=== PATIENT | female | born 1965 | race Caucasian/White ===

== ENCOUNTER → 2021-07-13 | Outpatient (CLI) | payer OTHER | LOC: M SOG 10:18 | PROVIDERS: ATTEND Orthopaedic Surgery Adult Reconstructive Orthopaedic Surgery | DX: M25.561 Pain in right knee (principal) ==

== ENCOUNTER → 2021-08-02 | Outpatient (CLI) | payer OTHER ==
[2021-08-02 16:09] LABS: BASO # 0.1 10^3/uL (0.0-0.2); BASO % 1.1 % (0.0-1.0); EOS # 0.1 10^3/uL (0.0-0.5); EOS % 1.5 % (0.0-3.0); HEMATOCRIT 40.1 % (36.0-47.0); HEMOGLOBIN 13.4 g/dl (12.0-15.5); LYMPH # 1.6 10^3/uL (1.5-5.0); LYMPH % 29.5 % (24.0-44.0); MEAN CORPUSCULAR HEMOGLOBIN 31.5 pg (27.0-33.0); MEAN CORPUSCULAR HGB CONC 33.4 g/dl (32.0-36.5); MEAN CORPUSCULAR VOLUME 94.4 fl (80.0-96.0); MONO # 0.5 10^3/uL (0.0-0.8); MONO % 8.9 % (2.0-8.0); NEUTROPHILS # 3.1 10^3/uL (1.5-8.5); PLATELET COUNT, AUTOMATED 261 10^3/uL (150-450); RED BLOOD COUNT 4.25 10^6/uL (4.00-5.40); WHITE BLOOD COUNT 5.3 10^3/uL (4.0-10.0)
[2021-08-02 18:22] LABS: ERYTHROCYTE SEDIMENTATION RATE 3 mm/hr (0-30)
== END ==
LOC: M RAD 14:26
PROVIDERS: ATTEND Orthopaedic Surgery Adult Reconstructive Orthopaedic Surgery
DX: M23.91 Unspecified internal derangement of right knee (principal); M89.8X8 Other specified disorders of bone, other site

== ENCOUNTER 2021-08-28 09:54 | Day surgery (SDC) | payer OTHER ==
[~2021-08-28] VITALS: Ht 167.6 cm; Wt 65.2 kg
[~2021-08-28 09:54] MED LIST: ACETAMINOPHEN 500 MG TAB PO ONE; GABAPENTIN 300 MG CAP PO ONE; LIDOCAINE 2% 100MG/5ML SDV (FOR ANES.) As Ordered ONE; LR 1,000 ML IV ONE; MIDAZOLAM INJ 2MG/2ML VIAL (J2250 PER 1MG) As Ordered ONE; ONDANSETRON 4MG/2ML VIAL IV ONE; OXYC1TAB23 PO; fentaNYL 100 MCG/2 ML INJECTION As Ordered ONE; propofoL 200 MG/20 ML VIAL As Ordered ONE
[2021-08-28] MEDS ORDERED: EPINEPHrine INJ 1 MG/ML 1ML AMP As Ordered ONE (13:05)
[2021-08-28] MEDS ORDERED: BUPIVACAINE/EPIN 0.5% 30 ML VIAL As Ordered ONE (13:06)
[2021-08-28] MEDS ORDERED: dexameTHASONE 4 MG/ML 1ML VIAL (J1100 PER 1MG) As Ordered ONE (13:40)
[2021-08-28] MEDS ORDERED: METOCLOPRAMIDE INJ 10MG/2ML VIAL (J2765 PER 1) As Ordered ONE (13:42)
[2021-08-28] MEDS ORDERED: ePHEDrine SULFATE 25 MG/5 ML(5MG/ML) SYRINGE As Ordered ONE (13:45)
[2021-08-28] MEDS ORDERED: fentaNYL 100 MCG/2 ML INJECTION As Ordered ONE (14:37)
[2021-08-28] MEDS: fentaNYL 100 MCG/2 ML INJECTION IV PRN ×4 (14:38→14:56)
[2021-08-28] MEDS ORDERED: LR 1,000 ML IV SCH (15:05)
[2021-08-28] MEDS ORDERED: ONDANSETRON 4MG/2ML VIAL IV PRN (15:05)
[2021-08-28] MEDS: PERCOCET 5MG/325MG TAB PO PRN ×2 (15:08→15:46)
[2021-08-28 15:18] VITALS: BP 124/70
== END 2021-08-28 16:04 | disposition home or self-care (01) ==
LOC: M SDC 09:54
PROVIDERS: ATTEND Orthopaedic Surgery Adult Reconstructive Orthopaedic Surgery
DX: M23.91 Unspecified internal derangement of right knee (principal); F41.9 Anxiety disorder, unspecified; Z91.014 Allergy to mammalian meats; Z79.899 Other long term (current) drug therapy; Z88.1 Allergy status to other antibiotic agents; Z88.0 Allergy status to penicillin; Z88.8 Allergy status to other drugs, medicaments and biological substances
CPT/HCPCS: 29879; J0171; J2250; J2765; J3010

== ENCOUNTER → 2021-12-04 | Outpatient (CLI) | payer OTHER ==
[~2021-12-04] MED LIST changes: -ACETAMINOPHEN 500 MG TAB PO ONE; -GABAPENTIN 300 MG CAP PO ONE; -LIDOCAINE 2% 100MG/5ML SDV (FOR ANES.) As Ordered ONE; -LR 1,000 ML IV ONE; -MIDAZOLAM INJ 2MG/2ML VIAL (J2250 PER 1MG) As Ordered ONE; -ONDANSETRON 4MG/2ML VIAL IV ONE; -fentaNYL 100 MCG/2 ML INJECTION As Ordered ONE; -propofoL 200 MG/20 ML VIAL As Ordered ONE
== END ==
LOC: M SOG 14:50
PROVIDERS: ATTEND Orthopaedic Surgery Adult Reconstructive Orthopaedic Surgery
DX: M25.561 Pain in right knee (principal)

== ENCOUNTER → 2022-01-04 | Outpatient (CLI) | payer OTHER | LOC: M RAD 16:46 | PROVIDERS: ATTEND Orthopaedic Surgery Adult Reconstructive Orthopaedic Surgery | DX: S89.91XD Unspecified injury of right lower leg, subsequent encounter (principal) ==

== ENCOUNTER 2022-01-08 10:00 | Outpatient (RCR) | payer OTHER ==
[2022-01-15] MEDS ORDERED: CLON-412 PO (08:55)
[2022-01-16] MEDS ORDERED: ACET1TAB55 PO (09:25)
[2022-01-16] MEDS ORDERED: SENN18TA PO (09:25)
[2022-01-16] MEDS ORDERED: FERR1TAB8 PO (09:25)
[2022-01-16] MEDS ORDERED: OXYC-517 PO ×2 (09:25→12:58)
[2022-01-16] MEDS ORDERED: ASPI81CH8 PO (09:25)
[2022-01-16] MEDS ORDERED: TRAM50TA2 PO (09:25)
[2022-01-16] MEDS ORDERED: COLA100C5 PO (09:25)
[2022-01-16] MEDS ORDERED: LIDO5TD TD (09:25)
[2022-01-16] MEDS ORDERED: ASCO50TA PO (09:25)
== END 2022-01-18 ==
LOC: M PT 10:00
PROVIDERS: ATTEND Orthopaedic Surgery Adult Reconstructive Orthopaedic Surgery
DX: S89.91XD Unspecified injury of right lower leg, subsequent encounter (principal)

== ENCOUNTER 2022-01-15 08:28 | Observation (INO) | payer OTHER ==
[~2022-01-15] VITALS: Ht 170.2 cm; Wt 66.8 kg
[2022-01-15] VITALS (7 sets, daily range): BP systolic 109–115; BP diastolic 61–65
[~2022-01-15 08:28] MED LIST changes: +ACETAMINOPHEN 500 MG TAB PO ONE; +NS 1,000 ML IV ONE; +PREGABALIN 25 MG CAP (LYRICA) PO ONE; +ROPIVA 125MG/EPINEPH 0.25MG/CLONID 40MCG IN NS 50ML SYRINGE PA ONE; +ceFAZolin SOD 2 GM in IV 1 EA IV ONE; +dexameTHASONE 4 MG/ML 1ML VIAL (J1100 PER 1MG) IV ONE
[2022-01-15] MEDS ORDERED: CLON-412 PO (08:55)
[2022-01-15] MEDS ORDERED: TRANEXAMIC ACID 100 MG/ML 10ML VIAL As Ordered ONE ×2 (10:26→10:27)
[2022-01-15] MEDS ORDERED: LR 1,000 ML IV SCH ×2 (10:50→13:25)
[2022-01-15] MEDS ORDERED: SUGAMMADEX SODIUM 500 MG/5 ML VIAL (BRIDION) As Ordered ONE (11:22)
[2022-01-15] MEDS ORDERED: LIDOCAINE 2% 100MG/5ML SDV (FOR ANES.) As Ordered ONE (11:22)
[2022-01-15] MEDS ORDERED: METOCLOPRAMIDE INJ 10MG/2ML VIAL (J2765 PER 1) As Ordered ONE (11:22)
[2022-01-15] MEDS ORDERED: fentaNYL 250 MCG/5 ML INJECTION As Ordered ONE (11:22)
[2022-01-15] MEDS ORDERED: dexameTHASONE 4 MG/ML 1ML VIAL (J1100 PER 1MG) As Ordered ONE (11:22)
[2022-01-15] MEDS ORDERED: MIDAZOLAM INJ 2MG/2ML VIAL (J2250 PER 1MG) As Ordered ONE (11:22)
[2022-01-15] MEDS ORDERED: ONDANSETRON 4MG 2ML VIAL As Ordered ONE (11:22)
[2022-01-15] MEDS ORDERED: propofoL 200 MG/20 ML VIAL As Ordered ONE (11:22)
[2022-01-15] MEDS ORDERED: PHENYLephrine 500MCG 5ML (100MCG/ML) SYRINGE As Ordered ONE (11:22)
[2022-01-15] MEDS ORDERED: fentaNYL 100 MCG/2 ML INJECTION As Ordered ONE (11:22)
[2022-01-15] MEDS ORDERED: ROCURONIUM BROMIDE 50 MG/5 ML VIAL As Ordered ONE (11:22)
[2022-01-15] MEDS ORDERED: DESFLURANE 240 ML INHALANT As Ordered ONE (13:08)
[2022-01-15] MEDS ORDERED: HYDROmorphone HCL 2MG/ML 1ML VIAL As Ordered ONE (13:22)
[2022-01-15] MEDS ORDERED: ONDANSETRON 4MG 2ML VIAL IV PRN ×2 (13:25→18:00)
[2022-01-15] MEDS ORDERED: fentaNYL 100 MCG/2 ML INJECTION IV PRN (13:25)
[2022-01-15] MEDS: oxyCODONE 5MG TAB PO PRN ×4 (13:49→22:39)
[2022-01-15] MEDS: MORPHINE 2 MG/ML 1ML VIAL IV PRN ×3 (14:06→14:48)
[2022-01-15 14:39] LABS: HEMATOCRIT 39.4 % (36.0-47.0); HEMOGLOBIN 13.2 g/dl (12.0-15.5); MEAN CORPUSCULAR HEMOGLOBIN 32.6 pg (27.0-33.0); MEAN CORPUSCULAR HGB CONC 33.5 g/dl (32.0-36.5); MEAN CORPUSCULAR VOLUME 97.3 fl (80.0-96.0); PLATELET COUNT, AUTOMATED 280 10^3/uL (150-450); RED BLOOD COUNT 4.05 10^6/uL (4.00-5.40); WHITE BLOOD COUNT 15.6 10^3/uL (4.0-10.0)
[2022-01-15] MEDS ORDERED: HOME MED LIST COMPLETE! XX SCH (15:15)
[2022-01-15 15:21] LABS: BLOOD UREA NITROGEN 8 MG/DL (7-18); CALCIUM LEVEL 8.9 MG/DL (8.5-10.1); CARBON DIOXIDE LEVEL 27 MEQ/L (21-32); CHLORIDE LEVEL 106 MEQ/L (98-107); CREATININE FOR GFR 0.68 MG/DL (0.55-1.30); GLOMERULAR FILTRATION RATE > 60.0 (>51); GLUCOSE, FASTING 125 MG/DL (70-100); POTASSIUM SERUM 3.8 MEQ/L (3.5-5.1); SODIUM LEVEL 138 MEQ/L (136-145)
[2022-01-15] MEDS ORDERED: SENNA 8.6 MG TAB (SENOKOT) PO PRN (18:00)
[2022-01-15] MEDS ORDERED: oxyCODONE 5MG TAB PO PRN (18:00)
[2022-01-15] MEDS: LR 1,000 ML IV SCH (18:05)
[2022-01-15] MEDS: ACETAMINOPHEN TAB 650MG DOSE (2X325MG) PO SCH (18:29)
[2022-01-15] MEDS: ceFAZolin SOD 2 GM in IV 1 EA IV SCH (18:30)
[2022-01-15] MEDS ORDERED: **NOTE PATIENT COMMENT** MISC XX SCH (21:00)
[2022-01-15] MEDS: DOCUSATE SODIUM 100MG CAPSULE PO SCH (22:06)
[2022-01-15] MEDS: ASPIRIN 81 MG CHEW TABLET PO SCH (22:06)
[2022-01-16] MEDS: traMADol 50 MG TAB PO PRN ×3 (00:51→12:19)
[2022-01-16] MEDS: ACETAMINOPHEN TAB 650MG DOSE (2X325MG) PO SCH ×3 (00:52→12:18)
[2022-01-16 02:00] VITALS: BP 108/61
[2022-01-16] MEDS: ceFAZolin SOD 2 GM in IV 1 EA IV SCH (02:34)
[2022-01-16] MEDS: oxyCODONE 5MG TAB PO PRN ×3 (02:37→13:53)
[2022-01-16] MEDS: LR 1,000 ML IV SCH (04:05)
[2022-01-16 06:00] VITALS: BP 110/65
[2022-01-16] MEDS ORDERED: LIDOCAINE 5% (LIDODERM) PATCH TD SCH (09:00)
[2022-01-16] MEDS ORDERED: ASCORBIC ACID 500 MG TAB PO SCH (09:00)
[2022-01-16] MEDS ORDERED: FERROUS SULFATE 325MG TAB PO SCH (09:00)
[2022-01-16] MEDS ORDERED: ASPI81CH8 PO (09:25)
[2022-01-16] MEDS ORDERED: TRAM50TA2 PO (09:25)
[2022-01-16] MEDS ORDERED: LIDO5TD TD (09:25)
[2022-01-16] MEDS ORDERED: FERR1TAB8 PO (09:25)
[2022-01-16] MEDS ORDERED: ACET1TAB55 PO (09:25)
[2022-01-16] MEDS ORDERED: OXYC-517 PO ×2 (09:25→12:58)
[2022-01-16] MEDS ORDERED: COLA100C5 PO (09:25)
[2022-01-16] MEDS ORDERED: SENN18TA PO (09:25)
[2022-01-16] MEDS ORDERED: ASCO50TA PO (09:25)
[2022-01-16] MEDS: DOCUSATE SODIUM 100MG CAPSULE PO SCH (09:34)
[2022-01-16] MEDS: ASPIRIN 81 MG CHEW TABLET PO SCH (09:34)
== END 2022-01-16 15:30 | disposition home health service (06) ==
LOC: M SDC 08:28 → M MS5PR 08:29
PROVIDERS: ADMIT Student in an Organized Health Care Education/Training Program; ATTEND Student in an Organized Health Care Education/Training Program
DX: M17.31 Unilateral post-traumatic osteoarthritis, right knee (principal); Z91.014 Allergy to mammalian meats; Z88.8 Allergy status to other drugs, medicaments and biological substances; Z88.0 Allergy status to penicillin; Z85.09 Personal history of malignant neoplasm of other digestive organs; Z79.82 Long term (current) use of aspirin; Z79.899 Other long term (current) drug therapy
CPT/HCPCS: 27447; 36415; 73560; 80048; 85027; 88304; 88311; 96365; 96366; 96375; 97110; 97116; 97161; 97165; 97530; C1776; J0690; J1100; J1170; J2250; J2270; J2370; J2405; J2765; J3010; S2900

== ENCOUNTER → 2022-02-04 | Outpatient (CLI) | payer OTHER ==
[~2022-02-04] MED LIST changes: +ACET1TAB55 PO; -ACETAMINOPHEN 500 MG TAB PO ONE; +ASCO50TA PO; +ASPI81CH8 PO; +CLON-412 PO; +COLA100C5 PO; +FERR1TAB8 PO; +LIDO5TD TD; -NS 1,000 ML IV ONE; +OXYC-517 PO; -PREGABALIN 25 MG CAP (LYRICA) PO ONE; -ROPIVA 125MG/EPINEPH 0.25MG/CLONID 40MCG IN NS 50ML SYRINGE PA ONE; +SENN18TA PO; +TRAM50TA2 PO; -ceFAZolin SOD 2 GM in IV 1 EA IV ONE; -dexameTHASONE 4 MG/ML 1ML VIAL (J1100 PER 1MG) IV ONE
== END ==
LOC: M SOG 10:48
PROVIDERS: ATTEND Orthopaedic Surgery Adult Reconstructive Orthopaedic Surgery
DX: M17.31 Unilateral post-traumatic osteoarthritis, right knee (principal); Z96.651 Presence of right artificial knee joint

== ENCOUNTER → 2022-04-03 | Outpatient (CLI) | payer OTHER | LOC: M SOG 14:41 | PROVIDERS: ATTEND Orthopaedic Surgery Adult Reconstructive Orthopaedic Surgery | DX: Z96.651 Presence of right artificial knee joint (principal) ==